=== PATIENT | female | born 1940 | race Caucasian/White ===

== ENCOUNTER → 2017-09-27 15:14 | Outpatient (CLI) | payer MEDICARE, OTHER, SELFPAY ==
--- NOTE | 2017-09-27 | DI.MG.S_ITS ---
BILATERAL DIGITAL SCREENING MAMMOGRAM 3D/2D WITH CAD: 09/27/2017 CLINICAL: Routine screening. Family history of breast cancer. Comparison is made to exams dated: 08/04/2016 mammogram, 07/22/2015 mammogram, and 07/16/2014 mammogram - [facility]. The tissue of both breasts is heterogeneously dense. This may lower the sensitivity of mammography. Current study was also evaluated with a Computer Aided Detection (CAD) system. There are multiple calcifications in the left breast superior medial quadrant posterior depth. No other significant masses, calcifications, or other findings are seen in either breast. IMPRESSION: INCOMPLETE: NEEDS ADDITIONAL IMAGING EVALUATION The multiple calcifications in the left breast are indeterminate. Additional views with possible ultrasound are recommended. This exam was interpreted at Station ID: [id number]. NOTE: For mammograms, a report in lay terms will be sent to the patient. Approximately 15% of breast malignancies will not be visualized mammographically. In the management of a palpable breast mass, a negative mammogram must not discourage biopsy of a clinically suspicious lesion. Electronically Signed By: Luis Nagel M.D. ecl/:09/27/2017 20:02:43 copy to: BERNIE GUSMAN letter sent: Additional Imaging Needed ACR BI-RADS Category 0: Incomplete 3340F
== END ==
PROVIDERS: PCP Internal Medicine; Visit Provider Internal Medicine
DX: Z12.31 Encounter for screening mammogram for malignant neoplasm of breast (principal); Z80.3 Family history of malignant neoplasm of breast
CPT/HCPCS: 77063; 77067

== ENCOUNTER → 2017-10-25 13:36 | Outpatient (CLI) | payer MEDICARE, OTHER, SELFPAY ==
--- NOTE | 2017-10-25 | DI.MG.S_ITS ---
UNILATERAL LEFT DIGITAL DIAGNOSTIC MAMMOGRAM 3D/2D WITH ADDITIONAL VIEWS: 10/25/2017 CLINICAL: Additional evaluation requested from prior study. Comparison is made to exams dated: 09/27/2017 mammogram, 08/04/2016 mammogram, and 07/22/2015 mammogram - [facility]. The tissue of the left breast is heterogeneously dense. This may lower the sensitivity of mammography. There are 1.9 cm x 1.8 cm x 1.4 cm grouped fine punctate calcifications in the left breast upper inner aspect posterior depth. No other significant masses or calcifications are seen in the breast. IMPRESSION: INCOMPLETE: NEEDS ADDITIONAL IMAGING EVALUATION The 1.9 cm x 1.8 cm x 1.4 cm grouped fine punctate calcifications in the left breast are at an intermediate suspicion for malignancy. A targeted ultrasound is recommended to assess for a mass correlate. If no mass correlate is identified, a stereotactic biopsy is recommended. This exam was interpreted at Station ID: [id number]. NOTE: For mammograms, a report in lay terms will be sent to the patient. Approximately 15% of breast malignancies will not be visualized mammographically. In the management of a palpable breast mass, a negative mammogram must not discourage biopsy of a clinically suspicious lesion. Electronically Signed By: Luis Nagel M.D. ecl/:10/26/2017 04:30:27 copy to: BERNIE GUSMAN letter sent: Additional Imaging Needed ACR BI-RADS Category 0: Incomplete 3340F
--- NOTE | 2017-10-25 | DI.US.S_ITS ---
ULTRASOUND OF LEFT BREAST: 10/25/2017 CLINICAL: Follow up from addtional views. Comparison is made to exams dated: 10/25/2017 mammogram, 09/27/2017 mammogram, and 08/04/2016 mammogram - [facility]. Real-time and Doppler ultrasound of the left breast were performed. Rincon scale images of the real-time examination were reviewed. Targeted ultrasound was performed of the superior medial left breast. No underlying mass or abnormality is identified. There is no ultrasound correlate for the calcifications seen in the superior medial left breast on diagnostic mammography. IMPRESSION: SUSPICIOUS OF MALIGNANCY - FOLLOW-UP RECOMMENDED The 1.9 cm x 1.8 cm x 1.4 cm grouped fine punctate calcifications in the superior medial left breast on diagnostic mammography are at an intermediate suspicion for malignancy, and demonstrate no mass correlate on targeted ultrasound. As such, a stereotactic biopsy is recommended. These results and recommendations were discussed with the patient by telephone immediately after the time of the exam by radiologist Dr. Nagel. Patient's identity was confirmed with personal identifiers prior to telephone discussion of results. This exam was interpreted at Station ID: [id number]. Electronically Signed By: Luis Nagel M.D. ecl/:10/26/2017 04:33:14 copy to: BERNIE GUSMAN letter sent: Biopsy Required Ultrasound BI-RADS: 4b Suspicious abnormality - intermediate suspicion of malignancy
== END ==
PROVIDERS: PCP Internal Medicine; Visit Provider Internal Medicine
DX: R92.1 Mammographic calcification found on diagnostic imaging of breast (principal)
CPT/HCPCS: 76642; 77065; G0279

== ENCOUNTER → 2018-02-16 13:07 | Outpatient (REF) | payer MEDICARE, OTHER, SELFPAY ==
[2018-02-16 13:19] LABS: Add Manual Diff / Slide Review NO; Basophils Percent Auto 1.2 % (0-2); Eosinophils Percent Auto 2.5 % (2-4); Hematocrit 35.8 % (36-46); Lymphocytes Percent Auto 14.1 % (25-40); Mean Corpuscular HGB Conc 33.6 % (30-36); Mean Corpuscular Hemoglobin 28.9 PG (26-34); Mean Corpuscular Volume 86.1 fL (80-100); Monocytes Percent Auto 7.2 % (3-14); Neutrophils Absolute Auto 5500 /uL (1500-7000); Platelet Count 235 X10^3/uL (150-400); Red Blood Cell Count 4.16 X10^6/uL (4.0-5.2); Red Cell Distribution Width 14.1 % (11.6-14.8); White Blood Cell Count 7.3 X10^3/uL (4.5-11.0)
[2018-02-16 13:23] LABS: BUN Creatinine Ratio 37.1 (6-22); Blood Urea Nitrogen 26 mg/dL (7-17); Calcium 9.5 mg/dL (8.4-10.2); Carbon Dioxide 29 mmol/L (22-32); Chloride 104 mmol/L (98-107); Estimated Glomerular Filt Rate > 60.0 mL/min (>60); Glucose 88 mg/dL (80-110); HEMOLYSIS < 15 (0-50); Potassium 5.1 mmol/L (3.4-5.1); Sodium 141 mmol/L (137-145)
== END ==
LOC: LAB 13:07
PROVIDERS: PCP Internal Medicine; Visit Provider Internal Medicine
DX: R10.30 Lower abdominal pain, unspecified (principal)
CPT/HCPCS: 80048; 85025

== ENCOUNTER → 2018-02-20 08:54 | Outpatient (CLI) | payer MEDICARE, OTHER, SELFPAY ==
--- NOTE | 2018-02-20 | DI.CT.S_ITS ---
PROCEDURE: CT ABDOMEN PELVIS W CON INDICATIONS: LOWER ABDOMINAL PAIN TECHNIQUE: After the administration of oral and intravenous contrast, 5 mm thick sections acquired from the diaphragms to the symphysis. 5 mm thick coronal and sagittal reformats were performed. For radiation dose reduction, the following was used: automated exposure control, adjustment of mA and/or kV according to patient size. COMPARISON: [facility], CT, ABDOMEN/PELVIS WITH CONTRAST, 07/26/2016, 9:27. [facility], CT, ABDOMEN/PELVIS WITH CONTRAST, 09/08/2014, 9:19. FINDINGS: Image quality: Excellent. ABDOMEN: Lung bases: Lung bases are clear. Heart size is normal. Solid organs: Liver is normal in size and enhancement. Gallbladder appears normal. Biliary system is non-dilated. Pancreas enhances normally. Spleen is normal in size and enhancement. No adrenal nodules. Kidneys are normal in size and enhancement, without hydronephrosis. Peritoneum and bowel: Stomach, small bowel, and colon loops are normal in caliber and wall thickness. No free fluid or air. Nodes and vessels: No retroperitoneal or mesenteric adenopathy. Aorta and inferior vena cava are normal in caliber. Miscellaneous: No ventral hernias. PELVIS: Genitourinary: Bladder wall thickness is normal. Miscellaneous: No inguinal hernias or adenopathy. Mild diverticulosis, no acute diverticulitis, normal appendix. Bones: No suspicious bony lesions. Coarsened trabecula again noted at the left sacrum and left iliac bone, present at least since 2011 and most consistent with mild Paget's disease. No vertebral body compression fractures. IMPRESSION: 1. Mild diverticulosis, no acute diverticulitis, normal appendix. No inflammation within the pelvis is seen. A definite source of the reported lower abdominal pain is not found. 2. Again noted is a pattern of mild trabecular thickening at the left sacrum and iliac bone consistent with long-standing Paget's disease, present at least since [address] scanning. No acute osseous abnormality is found. Dictated by: Yuniel Lu M.D. on 02/20/2018 at 10:29 Approved by: Yuniel Lu M.D. on 02/20/2018 at 10:35
== END ==
PROVIDERS: PCP Internal Medicine; Visit Provider Internal Medicine
DX: R10.30 Lower abdominal pain, unspecified (principal); K57.90 Diverticulosis of intestine, part unspecified, without perforation or abscess without bleeding; M88.89 Osteitis deformans of multiple sites
CPT/HCPCS: 74177; Q9967

== ENCOUNTER 2018-03-27 09:44 | Day surgery (SDC) | payer MEDICARE, OTHER, SELFPAY ==
[2018-03-27 11:17] VITALS: BP 123/59; PULSE 65; RESP 15; TEMP 36.2; O2SAT 100
[2018-03-27] MEDS: PROPARACAINE 0.5% OPHTH SOL 2 DROPS EYE-OP (11:20)
[2018-03-27] MEDS: CATARACT EYE COMPOUND (10 DROPS/SYRINGE) 3 DROPS EYE-OP (11:36)
--- NOTE | 2018-03-27 12:22 | PM.PREOP ---
Pre-operative Note Interval Note History & Physical reviewed/Exam performed by Physician: No Changes to H&P: No
--- NOTE | 2018-03-27 12:22 | PM.OP.1 ---
Operative Date/Time/Diagnoses Pre-op diagnosis: Nuclear cataract right eye Procedure & Clinicians Procedure: Cataract Surgery Same procedure as scheduled: Yes Surgeon: Chuckie Ng Anesthesia Type: MAC +/- and Sedation Operative Notes Procedure in detail: Patient brought to the operating suite. Tetracaine drops placed in the right eye. The marking instrument was used to tiffany the vertical and horizontal meridians. Patient was prepped and draped in sterile manner. Wire lid speculum was placed in the eye. The marking instrument was used to tiffany the 10 degree meridian. Betadine drops were placed on the eye. This was irrigated. Lidocaine jelly was placed on the eye. A paracentesis port was created with a side-port blade. 0.1 mL 1% preservative free lidocaine was injected into the anterior chamber. The anterior chamber was deepened with viscoelastic. 2.6 mm keratome was used to create a temporal clear corneal incision. Cystotome and Utrata forceps were used to create continuous tear capsulorrhexis. Balanced salt solution was used to hydro dissect the nucleus. The phacoemulsification handpiece was inserted and the nucleus was removed using the stop and chop technique. The irrigation aspiration handpiece was inserted and the remaining cortex was removed. Anterior chamber was deepened with viscoelastic. An Lima [id number] intraocular lens with a power of 23.0 was injected into the capsular bag. Irrigation aspiration handpiece was inserted and the remaining viscoelastic was removed. The lens was rotated to the 10 degree meridian. Incision was hydrated with balanced salt solution and found to be leak free with pressure with Weck-Merced sponges. 0.1 mL Vigamox injected anterior chamber. 0.3 mL Kenalog 10 mg was injected subconjunctivally. Lid speculum was removed. The patient left the operating room in excellent condition. Complications: none Condition: stable Disposition: same day surgery
[2018-03-27] MEDS: PHENYLEPHRINE/LIDOCAINE VIAL (OR) 0.2 ML EYE-OP (12:34)
[2018-03-27] MEDS: MOXIFLOXACIN OPHTH DROPS 3 ML BOTTLE 2 DROPS INJ (12:35)
[2018-03-27] MEDS: TETRACAINE 0.5% OPHTH DROPS 4 ML 2 DROPS EYE-OP (12:36)
[2018-03-27] MEDS: CHONDROIDTIN/SOD HYALURONATE 1.05 ML SYRINGE INTRAOCULA (12:36)
[2018-03-27] MEDS: TRIAMCINOLONE 50 MG/5 ML VIAL INJ (12:36)
[2018-03-27] MEDS: LIDOCAINE JELLY 2% 5 ML 1 APPLIC TOP (12:36)
[2018-03-27] MEDS: BALANCED SALT IRRIG SOLN NO.2 500 ML, EPINEPHrine 1 MG IRR (12:37)
[2018-03-27 12:54] VITALS: BP 137/64; PULSE 60; RESP 16; TEMP 36.3; O2SAT 100
== END 2018-03-27 13:06 | disposition home or self-care (01) ==
PROVIDERS: PCP Internal Medicine; Visit Provider Ophthalmology
DX: H25.11 Age-related nuclear cataract, right eye (principal); I10 Essential (primary) hypertension
CPT/HCPCS: J0171; J2250; J3301; V2788

== ENCOUNTER 2018-04-10 09:05 | Day surgery (SDC) | payer MEDICARE, OTHER, SELFPAY ==
[2018-04-10] MEDS: PROPARACAINE 0.5% OPHTH SOL 2 DROPS EYE-OP (10:09)
[2018-04-10] MEDS: CATARACT EYE COMPOUND (10 DROPS/SYRINGE) 3 DROPS EYE-OP ×3 (10:13→10:32)
[2018-04-10 10:23] VITALS: BP 133/68; PULSE 66; RESP 16; TEMP 37.1; O2SAT 100; BMI 24.5
[2018-04-10] MEDS: MOXIFLOXACIN OPHTH DROPS 3 ML BOTTLE 2 DROPS INJ (11:35)
[2018-04-10] MEDS: PHENYLEPHRINE/LIDOCAINE VIAL (OR) 0.2 ML EYE-OP (11:35)
[2018-04-10] MEDS: CHONDROIDTIN/SOD HYALURONATE 1.05 ML SYRINGE INTRAOCULA (11:36)
[2018-04-10] MEDS: TRIAMCINOLONE 50 MG/5 ML VIAL INJ (11:36)
[2018-04-10] MEDS: TETRACAINE 0.5% OPHTH DROPS 4 ML 2 DROPS EYE-OP (11:36)
[2018-04-10] MEDS: LIDOCAINE JELLY 2% 5 ML 1 APPLIC TOP (11:36)
[2018-04-10] MEDS: BALANCED SALT IRRIG SOLN NO.2 500 ML, EPINEPHrine 1 MG IRR (11:37)
[2018-04-10 11:47] VITALS: BP 130/66; PULSE 58; RESP 16; TEMP 36.3; O2SAT 99
--- NOTE | 2018-04-10 11:49 | PM.PREOP ---
Pre-operative Note Interval Note History & Physical reviewed/Exam performed by Physician: No Changes to H&P: No
--- NOTE | 2018-04-10 11:49 | PM.OP.1 ---
Operative Date/Time/Diagnoses Pre-op diagnosis: Nuclear Cataract Left eye Post-op diagnosis: same Procedure & Clinicians Surgeon: Chuckie Ng Anesthesia Type: MAC +/- and Sedation Operative Notes Procedure in detail: Patient brought to the operating suite. Tetracaine drops placed in the left eye. Patient was prepped and draped in sterile manner. Wire lid speculum was placed in the eye. Betadine drops were placed on the eye. This was irrigated. Lidocaine jelly was placed on the eye. A paracentesis port was created with a side-port blade. 0.1 mL 1% preservative free lidocaine was injected into the anterior chamber. The anterior chamber was deepened with viscoelastic. 2.6 mm keratome was used to create a temporal clear corneal incision. Cystotome and Utrata forceps were used to create continuous tear capsulorrhexis. Balanced salt solution was used to hydro dissect the nucleus. The phacoemulsification handpiece was inserted and the nucleus was removed using the stop and chop technique. The irrigation aspiration handpiece was inserted and the remaining cortex was removed. Anterior chamber was deepened with viscoelastic. An Lima [id number] intraocular lens with a power of 23.0 was injected into the capsular bag. Irrigation aspiration handpiece was inserted and the remaining viscoelastic was removed. Incision was hydrated with balanced salt solution and found to be leak free with pressure with Weck-Merced sponges. 0.1 mL Vigamox injected anterior chamber. 0.3 mL Kenalog 10 mg was injected subconjunctivally. Lid speculum was removed. The patient left the operating room in excellent condition. Complications: none Condition: stable Disposition: same day surgery
--- NOTE | 2018-04-10 12:27 | SUR.PREOP ---
1013 late entry - Confirmed eye drops/allergy to tropicamide with pharmacy prior to administration. Patient stated that she had it with her first cataract surgery and felt like it was normal post-operative trauma to the eye. Also states that she had mentioned the itching to Dr. Ng at the last surgery (on the way into the OR and she wasn't having symptoms) and that he told her that she needed to have the medication anyway. 1045 late entry - Patient had no complaints of eye irritation after the drops.
== END 2018-04-10 12:02 | disposition home or self-care (01) ==
LOC: OR 09:07
PROVIDERS: PCP Internal Medicine; Visit Provider Ophthalmology
DX: H25.12 Age-related nuclear cataract, left eye (principal); I10 Essential (primary) hypertension
CPT/HCPCS: J0171; J2250; J3301; V2788

== ENCOUNTER 2018-04-25 07:52 | Outpatient (RCR) | payer MEDICARE, OTHER, SELFPAY ==
--- NOTE | 2018-04-25 14:44 | PT.OIE ---
Current Diagnoses Urge incontinence (04/25/18) Past Surgical History Status post tubal ligation Provider Visit Care Team Role Provider Type Gaby Sarabia MD Attending Provider Physician Primary Care Provider Specialty: Internal Medicine Address: [address] [place] [address], [facility] Email: Physical Therapy Initial Evaluation PT-OP-A Visit Information Start: 04/25/18 09:30 Freq: Status: Active Protocol: Document 04/25/18 08:15 AMB (Rec: 04/25/18 10:15 AMB [id number]) Out-Patient Physical Therapy Visit Information Visit Information Visit Type Initial Evaluation Visit Start Time 08:15 Visit Stop Time 09:15 Total Visit Minutes 55 Visit Number 1 Evaluation Information Evaluation Date 04/25/18 PT-OP-B Current Condition Start: 04/25/18 09:30 Freq: Status: Active Protocol: Document 04/25/18 08:15 AMB (Rec: 04/25/18 10:24 AMB [id number]) Current Condition History of Current Condition Onset Date 2 years Current Complaints urgency, urge incontinence History of Current Condition Pt is a post menopausal woman who has been noticing increased urge incontinence for the past few years. She is concerned about her pelvic floor strength. She denies pelvic heaviness, but does have some frequency (going to the bathroom about once an hour when she drinks a lot of water, but when she fluid restricts she can go 5 hours without voiding). She does wear a pad, because some days she may not have any leaking, and some days she may leak on her way to the bathroom. She does admit to having the quick in the door trigger. Prior Functional Status Baseline Function- ADL's Independent Baseline Function- Mobility Independent Current Functional Impairments (Reported) Functional Limitations- ADL's Wears a pad due to urinary incontinence Personal Factors Other Personal Factors That May Effect Lives on [place] Therapy/Recovery PT-OP-C Subjective Start: 04/25/18 09:30 Freq: Status: Active Protocol: Document 04/25/18 08:15 AMB (Rec: 04/25/18 11:41 AMB [email or web address]) Patient Questionnaires Pelvic Pain and Urgency/Frequency Patient Symptom Scale Pelvic Pain Score 7 PT-OP-I Pelvic Floor Start: 04/25/18 09:30 Freq: Status: Active Protocol: Document 04/25/18 08:15 AMB (Rec: 04/25/18 11:47 AMB [email or web address]) Pelvic Floor Assessment Urine Pelvic Floor Surgery No Urinary Symptoms Urge Sensation Leakage Size Medium Leakage Cause Urge Other Leakage Causes quick in door Leaks Per Day 1 Voiding Frequency every hour Nocturia 2 Urine Pad Type Panty Liner Pelvic Clock Pelvic Clock 12-3 Atrophy Pelvic Clock 9-12 Atrophy Perineal Descent Resting Absent Bearing Absent Contraction Ability Voluntary Contraction Weak Voluntary Relaxation Weak Manual Muscle Testing Left 2 Manual Muscle Testing Right 2 Manual Muscle Testing Anterior 1 Manual Muscle Testing Posterior 3 Comments Pelvic Floor Comments Charito has good strength posteriorly and with superficial muscles, but lacks strength at levator ani and with anterior superficial muscles. PT-OP-Q Treatments Start: 04/25/18 09:30 Freq: Status: Active Protocol: Document 04/25/18 08:15 AMB (Rec: 04/25/18 11:47 AMB [email or web address]) Therapeutic Exercises Supine Exercises 1 Supine Exercise Name quick flicks and long holds 10 second Reps/Minutes 2x10 Comments vc for correct muscle utilization, avoiding abs PT-OP-T Assessment and Plan Start: 04/25/18 09:30 Freq: Status: Active Protocol: Document 04/25/18 08:15 AMB (Rec: 04/25/18 12:05 AMB [email or web address]) Physical Therapy Assessment Rehab Potential Rehabilitation Potential Good Evaluation Complexity Number of Personal Factors/Comorbidities 1-2 Number of Body Systems Impaired 1-2 Clinical Presentation at Evaluation Stable Goals Two Impairment pelvic floor strength Short Term Goal (STG) Charito will be independent with a pelvic floor HEP STG Duration 4 weeks Usp Goal (LTG) Charito will exhibit 3/5 pelvic floor strength. LTG Duration 8 weeks One Impairment continence Short Term Goal (STG) Charito will use urge control methods to reduce urgency to 1x/week. STG Duration 4 weeks Assessment Summary Assessment Charito attends with urge incontinence symptoms, but since she lives on [place], she was hoping to make this her only appointment. She has been looking at NMES units online and is hoping that help with her incontinence. She does have some weakness, but was also educated in urge suppression. Would recommend her to be seen for at least one more visit for her to be reassessed to make sure she is making appropriate improvements. Physical Therapy Plan Frequency and Duration Frequency of Treatment Every Other Week Duration of Treatment 8 weeks Plan of Care Start Date 04/25/18 Plan of Care End Date 06/20/18 Therapeutic Interventions Therapeutic Interventions Home Exercise Program Manual Therapy Neuromuscular Re-education Self-Care/Home Management Therapeutic Activities Therapeutic Exercises Modalities Biofeedback Electric Stimulation Next Visit Focus/Plan Next Note Type Treatment Note Next Visit Plan Progress urge suppression and pelvic floor strength
--- NOTE | 2018-04-25 14:45 | PT.OPPOC ---
Current Diagnoses Urge incontinence (04/25/18) Provider Visit Care Team Role Provider Type Gaby Sarabia MD Attending Provider Physician Primary Care Provider Specialty: Internal Medicine Address: [address] [place] [address], [id number] Email: Plan Of Care PT-OP-T Assessment and Plan Start: 04/25/18 09:30 Freq: Status: Active Protocol: Document 04/25/18 08:15 AMB (Rec: 04/25/18 12:05 AMB [email or web address]) Physical Therapy Assessment Rehab Potential Rehabilitation Potential Good Evaluation Complexity Number of Personal Factors/Comorbidities 1-2 Number of Body Systems Impaired 1-2 Clinical Presentation at Evaluation Stable Goals Two Impairment pelvic floor strength Short Term Goal (STG) Charito will be independent with a pelvic floor HEP STG Duration 4 weeks Induction Furnace Operator Goal (LTG) Charito will exhibit 3/5 pelvic floor strength. LTG Duration 8 weeks One Impairment continence Short Term Goal (STG) Charito will use urge control methods to reduce urgency to 1x/week. STG Duration 4 weeks Assessment Summary Assessment Charito attends with urge incontinence symptoms, but since she lives on [place], she was hoping to make this her only appointment. She has been looking at NMES units online and is hoping that help with her incontinence. She does have some weakness, but was also educated in urge suppression. Would recommend her to be seen for at least one more visit for her to be reassessed to make sure she is making appropriate improvements. Physical Therapy Plan Frequency and Duration Frequency of Treatment Every Other Week Duration of Treatment 8 weeks Plan of Care Start Date 04/25/18 Plan of Care End Date 06/20/18 Therapeutic Interventions Therapeutic Interventions Home Exercise Program Manual Therapy Neuromuscular Re-education Self-Care/Home Management Therapeutic Activities Therapeutic Exercises Modalities Biofeedback Electric Stimulation Next Visit Focus/Plan Next Note Type Treatment Note Next Visit Plan Progress urge suppression and pelvic floor strength Plan of Care Dates Plan of Care Start Date 04/25/18 Plan of Care End Date 06/20/18 Please Sign and Return: I have reviewed this Plan of Care and certify that the skilled therapy services above are required to meet the patient?s needs. Physician Signature Date Printed Name and Credentials Clinical Instructor Signature Printed Name and Credentials
--- NOTE | 2018-06-11 11:34 | PT.OPDS ---
Current Diagnoses Urge incontinence (04/25/18) Provider Visit Care Team Role Provider Type Gaby Sarabia MD Attending Provider Physician Primary Care Provider Specialty: Internal Medicine Address: [address] [place] [address], [facility] Email: Visit Number Visit Number 1 Discharge Summary PT-OP-B Current Condition Start: 04/25/18 09:30 Freq: Status: Active Protocol: Document 04/25/18 08:15 AMB (Rec: 04/25/18 10:24 AMB [id number]) Current Condition History of Current Condition Onset Date 2 years Current Complaints urgency, urge incontinence History of Current Condition Pt is a post menopausal woman who has been noticing increased urge incontinence for the past few years. She is concerned about her pelvic floor strenght. She denies pelvic heaviness, but does have some frequency (going to the bathroom about once an hour when she drinks a lot of water, but when she fluid restricts she can go 5 hours without voiding). She does wear a pad, because some days she may not have any leaking, and some days she may leak on her way to the bathroom. She does admit to having the quick in the door trigger. Prior Functional Status Baseline Function- ADL's Independent Baseline Function- Mobility Independent Current Functional Impairments (Reported) Functional Limitations- ADL's Wears a pad due to urinary incontinence Personal Factors Other Personal Factors That May Effect Lives on [place] Therapy/Recovery PT-OP-C Subjective Start: 04/25/18 09:30 Freq: Status: Active Protocol: Document 04/25/18 08:15 AMB (Rec: 04/25/18 11:41 AMB [email or web address]) Patient Questionnaires Pelvic Pain and Urgency/Frequency Patient Symptom Scale Pelvic Pain Score 7 PT-OP-I Pelvic Floor Start: 04/25/18 09:30 Freq: Status: Active Protocol: Document 04/25/18 08:15 AMB (Rec: 04/25/18 11:47 AMB [email or web address]) Pelvic Floor Assessment Urine Pelvic Floor Surgery No Urinary Symptoms Urge Sensation Leakage Size Medium Leakage Cause Urge Other Leakage Causes quick in door Leaks Per Day 1 Voiding Frequency every hour Nocturia 2 Urine Pad Type Panty Liner Pelvic Clock Pelvic Clock 12-3 Atrophy Pelvic Clock 9-12 Atrophy Perineal Descent Resting Absent Bearing Absent Contraction Ability Voluntary Contraction Weak Voluntary Relaxation Weak Manual Muscle Testing Left 2 Manual Muscle Testing Right 2 Manual Muscle Testing Anterior 1 Manual Muscle Testing Posterior 3 Comments Pelvic Floor Comments Charito has good strength posteriorly and with superficial muscles, but lacks strength at levator ani and with anterior superficial muscles. PT-OP-T Assessment and Plan Start: 04/25/18 09:30 Freq: Status: Active Protocol: Document 06/11/18 11:33 AMB (Rec: 06/11/18 11:34 AMB [email or web address]) Physical Therapy Plan Discharge Physical Therapy Discharge Reasons No Longer Attending PT Discharge Comments Charito was encouraged to make at least 1 follow up appointment after evaluation, she then canceled that appointment since she lives on [place], she did not want to make the trip in. See initial evaluation for information, as patient has not been seen since.
== END 2018-06-13 16:42 ==
LOC: PHYS 07:52
PROVIDERS: PCP Internal Medicine; Visit Provider Internal Medicine
DX: N39.41 Urge incontinence (principal)
CPT/HCPCS: 97110; 97161

== ENCOUNTER → 2018-11-21 09:36 | Outpatient (CLI) | payer MEDICARE, OTHER, SELFPAY ==
--- NOTE | 2018-11-21 | DI.MG.S_ITS ---
BILATERAL DIGITAL SCREENING MAMMOGRAM 3D/2D WITH CAD: 11/21/2018 CLINICAL: Routine screening. Family history of breast cancer. Comparison is made to exams dated: 09/27/2017 mammogram, 08/04/2016 mammogram, 07/22/2015 mammogram - [facility], 11/15/2017 stereotactic biopsy - [facility], and 10/25/2017 mammogram - [facility]. The tissue of both breasts is heterogeneously dense. This may lower the sensitivity of mammography. Current study was also evaluated with a Computer Aided Detection (CAD) system. There is an asymmetry in the left breast middle depth lateral region seen on the craniocaudal view only. There is possible architectural distortion associated with the asymmetry, best seen on LCCBTO tomosynthesis slice 25/64. There are punctate calcifications associated with the asymmetry. There is a biopsy clip in the superior medial left breast posterior depth. No other significant masses, calcifications, or other findings are seen in either breast. IMPRESSION: INCOMPLETE: NEEDS ADDITIONAL IMAGING EVALUATION The asymmetry with possible associated architectual distortion in the left breast is indeterminate. Additional views with possible ultrasound are recommended. This exam was interpreted at Station ID: [id number]. NOTE: For mammograms, a report in lay terms will be sent to the patient. Approximately 15% of breast malignancies will not be visualized mammographically. In the management of a palpable breast mass, a negative mammogram must not discourage biopsy of a clinically suspicious lesion. Electronically Signed By: Luis Nagel M.D. ecl/:11/21/2018 17:33:28 letter sent: Additional Imaging Needed ACR BI-RADS Category 0: Incomplete 3340F
== END ==
PROVIDERS: PCP Internal Medicine; Visit Provider Internal Medicine
DX: Z12.31 Encounter for screening mammogram for malignant neoplasm of breast (principal); Z80.3 Family history of malignant neoplasm of breast
CPT/HCPCS: 77063; 77067

== ENCOUNTER → 2018-12-12 09:33 | Outpatient (CLI) | payer MEDICARE, OTHER, SELFPAY ==
--- NOTE | 2018-12-12 | DI.US.S_ITS ---
PROCEDURE: US BREAST LT LIMITED COMPARISON: [facility], BREAST LT LIMITED, 10/25/2017, 14:18. INDICATIONS: ADDITIONAL VIEW FINDINGS: IMPRESSION: Dictated by: Harvey Arthur M.D. on 12/14/2018 at 6:53 Approved by: Harvey Arthur M.D. on 12/14/2018 at 6:56
--- NOTE | 2018-12-12 | DI.MG.S_ITS ---
UNILATERAL LEFT DIGITAL DIAGNOSTIC MAMMOGRAM 3D/2D WITH ADDITIONAL VIEWS: 12/12/2018 CLINICAL: Additional evaluation requested from prior study. Comparison is made to exams dated: 11/21/2018 mammogram, 10/25/2017 mammogram, 09/27/2017 mammogram, and 08/04/2016 mammogram - [facility]. The tissue of left breast is heterogeneously dense. This may lower the sensitivity of mammography. The previously described asymmetry in the left breast middle depth lateral region seen on the craniocaudal view only with possible architectural distortion appears less prominent and decreased in size on today's imaging. The described calcifications appear relatively stable compared to prior mammograms. No other significant masses or calcifications are seen in the breast. IMPRESSION: INCOMPLETE: NEEDS ADDITIONAL IMAGING EVALUATION The asymmetry in the left breast is indeterminate. An ultrasound is recommended for further evaluation and is scheduled to immediately follow this study. This exam was interpreted at Station ID: [id number]. NOTE: For mammograms, a report in lay terms will be sent to the patient. Approximately 15% of breast malignancies will not be visualized mammographically. In the management of a palpable breast mass, a negative mammogram must not discourage biopsy of a clinically suspicious lesion. Electronically Signed By: Harvey Arthur M.D. aty/:12/12/2018 10:39:30 ACR BI-RADS Category 0: Incomplete 3340F
[2018-12-12 12:51] LABS: BUN Creatinine Ratio 37.1 (6-22); Blood Urea Nitrogen 26 mg/dL (7-17); Calcium 9.8 mg/dL (8.4-10.2); Carbon Dioxide 29 mmol/L (22-32); Chloride 103 mmol/L (98-107); Cholesterol 227 mg/dL (140-199); Estimated Glomerular Filt Rate > 60.0 mL/min (>60); Glucose 93 mg/dL (80-110); HDL Cholesterol 69 mg/dL (40-60); HEMOLYSIS < 15 (0-50); LDL Cholesterol Calculated 148 mg/dL (<100); Potassium 4.7 mmol/L (3.4-5.1); Sodium 140 mmol/L (137-145); Triglycerides 52 mg/dL (35-150)
== END ==
PROVIDERS: PCP Internal Medicine; Visit Provider Internal Medicine
DX: R92.8 Other abnormal and inconclusive findings on diagnostic imaging of breast (principal); N64.89 Other specified disorders of breast; I10 Essential (primary) hypertension; E78.5 Hyperlipidemia, unspecified
CPT/HCPCS: 36415; 76642; 77065; 80048; 80061; G0279

== ENCOUNTER → 2019-06-26 13:05 | Outpatient (CLI) | payer MEDICARE, OTHER, SELFPAY ==
--- NOTE | 2019-06-26 | DI.MG.S_ITS ---
UNILATERAL LEFT DIGITAL DIAGNOSTIC MAMMOGRAM 3D/2D SHORT-TERM FOLLOW-UP: 06/26/2019 CLINICAL: Patient returns for a 6 month follow up of the left breast. Comparison is made to exams dated: 12/12/2018 mammogram, 11/21/2018 [facility], 11/15/2017 stereotactic biopsy [facility], 10/25/2017, 08/04/2016, and 07/22/2015 [facility]. The tissue of left breast is heterogeneously dense. This may lower the sensitivity of mammography. The irregular equal density asymmetry with indistinct margins in the left breast middle depth lateral region seen on the craniocaudal view only is less prominent compared to the prior studies from 2019 and stable in appearance compared to older exams. No other significant masses or calcifications are seen in the breast. IMPRESSION: There is no mammographic evidence of malignancy. Return to annual mammogram screening schedule is recommended. This exam was interpreted at Station ID: [id number]. NOTE: For mammograms, a report in lay terms will be sent to the patient. Approximately 15% of breast malignancies will not be visualized mammographically. In the management of a palpable breast mass, a negative mammogram must not discourage biopsy of a clinically suspicious lesion. Electronically Signed By: Graham Orozco M.D. ddtran/:06/26/2019 14:05:10 letter sent: Normal Exam ACR BI-RADS Category 2: Benign Finding(s) 3342F
== END ==
PROVIDERS: PCP Internal Medicine; Referring Provider Internal Medicine; Visit Provider Internal Medicine
DX: R92.8 Other abnormal and inconclusive findings on diagnostic imaging of breast (principal); N64.89 Other specified disorders of breast
CPT/HCPCS: 77065; G0279

== ENCOUNTER → 2019-08-26 13:39 | Outpatient (CLI) | payer MEDICARE, OTHER, SELFPAY ==
[2019-08-26 13:49] LABS: Bacteria Urine None Seen; WBC Urine None Seen (0-5/HPF)
[2019-08-26 15:09] LABS: Appearance Urine UA CLEAR; Bilirubin Urine UA NEGATIVE (NEGATIVE); Color Urine UA YELLOW; Glucose Urine UA NEGATIVE (Negative); Ketones Urine UA TRACE (NEGATIVE); Leukocyte Esterase Urine UA NEGATIVE (NEGATIVE); Nitrite Urine UA NEGATIVE (Negative); Occult Blood Urine UA 1+ (Negative); Protein Urine UA NEGATIVE (Negative); Specific Gravity Urine UA >=1.030 (1.000-1.035); Urobilinogen Urine UA 0.2 E.U./dL (0.2)
[2019-08-26 15:15] LABS: Culture Indicated Urine Cult Not Indicated; RBC Urine 1-5/HPF (0-5/HPF)
== END ==
PROVIDERS: PCP Internal Medicine; Referring Provider Urology; Visit Provider Urology
DX: N39.41 Urge incontinence (principal)
CPT/HCPCS: 81001

== ENCOUNTER → 2019-10-09 08:28 | Outpatient (CLI) | payer MEDICARE, OTHER, SELFPAY ==
[2019-10-09 08:48] LABS: RBC Urine None Seen (0-5/HPF)
[2019-10-09 11:32] LABS: Appearance Urine UA CLEAR; Bilirubin Urine UA NEGATIVE (NEGATIVE); Color Urine UA YELLOW; Glucose Urine UA NEGATIVE (Negative); Ketones Urine UA NEGATIVE (NEGATIVE); Leukocyte Esterase Urine UA NEGATIVE (NEGATIVE); Nitrite Urine UA NEGATIVE (Negative); Occult Blood Urine UA NEGATIVE (Negative); Protein Urine UA NEGATIVE (Negative); Specific Gravity Urine UA 1.015 (1.000-1.035); Urobilinogen Urine UA 0.2 E.U./dL (0.2)
[2019-10-09 11:39] LABS: pH Urine UA 6.5 (4.5-8.0)
[2019-10-09 12:06] LABS: Bacteria Urine Occasional (0-1); Urine Comments Microscopic Normal; WBC Urine 0-1/HPF (0-5/HPF)
[2019-10-09 12:07] LABS: Culture Indicated Urine Cult Not Indicated
== END ==
PROVIDERS: PCP Internal Medicine; Referring Provider Urology; Visit Provider Urology
DX: R39.9 Unspecified symptoms and signs involving the genitourinary system (principal)
CPT/HCPCS: 81001

== ENCOUNTER → 2019-11-27 07:55 | Outpatient (CLI) | payer MEDICARE, OTHER, SELFPAY ==
--- NOTE | 2019-11-27 | DI.MG.S_ITS ---
BILATERAL DIGITAL SCREENING MAMMOGRAM 3D/2D WITH CAD: 11/27/2019 CLINICAL: Routine screening. Family history of breast cancer. Comparison is made to exams dated: 11/21/2018 mammogram, 09/27/2017 mammogram, and 08/04/2016 mammogram - [facility]. The tissue of both breasts is heterogeneously dense. This may lower the sensitivity of mammography. Current study was also evaluated with a Computer Aided Detection (CAD) system. There are benign calcifications in both breasts. No significant masses, calcifications, or other findings are seen in either breast. There has been no significant interval change. IMPRESSION: BENIGN There is no mammographic evidence of malignancy. A 1 year screening mammogram is recommended. This exam was interpreted at Station ID: [id number]. NOTE: For mammograms, a report in lay terms will be sent to the patient. Approximately 15% of breast malignancies will not be visualized mammographically. In the management of a palpable breast mass, a negative mammogram must not discourage biopsy of a clinically suspicious lesion. Electronically Signed By: Graham singh/dina:11/27/2019 08:31:28 letter sent: Normal Exam ACR BI-RADS Category 2: Benign Finding(s) 3342F
== END ==
PROVIDERS: PCP Internal Medicine; Referring Provider Internal Medicine; Visit Provider Internal Medicine
DX: Z12.31 Encounter for screening mammogram for malignant neoplasm of breast (principal); Z80.3 Family history of malignant neoplasm of breast
CPT/HCPCS: 77063; 77067

== ENCOUNTER → 2020-12-07 16:32 | Outpatient (CLI) | payer MEDICARE, OTHER, SELFPAY | PROVIDERS: PCP Internal Medicine; Referring Provider Internal Medicine; Visit Provider Internal Medicine | DX: Z12.31 Encounter for screening mammogram for malignant neoplasm of breast (principal); Z53.8 Procedure and treatment not carried out for other reasons ==

== ENCOUNTER → 2021-01-11 08:21 | Outpatient (CLI) | payer MEDICARE, OTHER, SELFPAY ==
[2021-01-11 11:04] LABS: Alanine Aminotransferase 14 IU/L (<35); Albumin 4.6 g/dL (3.5-5.0); Albumin Globulin Ratio 1.8 (1.0-2.8); Alkaline Phosphatase 133 U/L (38-126); Aspartate Aminotransferase 25 IU/L (14-36); BUN Creatinine Ratio 25.8 (6-22); Bilirubin Total 0.4 mg/dL (0.2-1.3); Blood Urea Nitrogen 23 mg/dL (7-17); Carbon Dioxide 29 mmol/L (22-32); Chloride 99 mmol/L (98-107); Cholesterol 172 mg/dL (140-199); Estimated Glomerular Filt Rate > 60.0 mL/min (>60); Globulin 2.6 g/dL (1.7-4.1); Glucose 94 mg/dL (80-110); HDL Cholesterol 81 mg/dL (40-60); HEMOLYSIS < 15 (0-50); LDL Cholesterol Calculated 81 mg/dL (<100); Potassium 4.6 mmol/L (3.4-5.1); Sodium 136 mmol/L (137-145); Total Protein 7.2 g/dL (6.3-8.2); Triglycerides 51 mg/dL (35-150)
[2021-01-11 11:20] LABS: Vitamin D 25 Hydroxy (D3) 62.6 ng/mL (30.0-100.0)
--- NOTE | 2021-01-11 15:11 | DI.MG.S_ITS ---
BILATERAL DIGITAL SCREENING MAMMOGRAM 3D/2D WITH CAD: 01/11/2021 CLINICAL: Routine screening. Family history of breast cancer. Comparison is made to exams dated: 11/27/2019 mammogram, 06/26/2019 mammogram, and 11/21/2018 mammogram - [facility]. The tissue of both breasts is heterogeneously dense. This may lower the sensitivity of mammography. Current study was also evaluated with a Computer Aided Detection (CAD) system. There are benign calcifications in both breasts. No significant masses, calcifications, or other findings are seen in either breast. There has been no significant interval change. IMPRESSION: BENIGN There is no mammographic evidence of malignancy. A 1 year screening mammogram is recommended. This exam was interpreted at Station ID: [id number]. NOTE: For mammograms, a report in lay terms will be sent to the patient. Approximately 15% of breast malignancies will not be visualized mammographically. In the management of a palpable breast mass, a negative mammogram must not discourage biopsy of a clinically suspicious lesion. Electronically Signed By: Víctor Luke M.D., jr/dina:01/11/2021 15:42:46 letter sent: Normal Exam ACR BI-RADS Category 2: Benign Finding(s) 3342F
[2021-01-11 18:17] LABS: Hep C Virus Ab w/Reflex Quant NEGATIVE s/c (NEGATIVE)
== END ==
PROVIDERS: PCP Internal Medicine; Referring Provider Internal Medicine; Visit Provider Internal Medicine
DX: Z80.3 Family history of malignant neoplasm of breast (principal); Z12.31 Encounter for screening mammogram for malignant neoplasm of breast; Z11.59 Encounter for screening for other viral diseases; M85.89 Other specified disorders of bone density and structure, multiple sites; E78.5 Hyperlipidemia, unspecified
CPT/HCPCS: 36415; 77063; 77067; 80053; 80061; 82306; 86803

== ENCOUNTER → 2021-03-10 09:56 | Outpatient (CLI) | payer MEDICARE, OTHER, SELFPAY ==
--- NOTE | 2021-03-10 | DI.RAD.S_ITS ---
PROCEDURE: XR HIP W PEL IF DONE BILAT 2V INDICATIONS: Osteopenia of multiple sites/Paget's disease of shruti TECHNIQUE: Single view of the pelvis and additional view of each hip was obtained COMPARISON: [facility] Jarrett, GILLES, HIPS BILATERAL, 10/14/2013, 14:34. FINDINGS: Bones: Coarsening of the trabecular pattern noted in the left hemipelvis, similar prior exam. Both proximal femurs are unremarkable. There is moderate left and mild right joint space narrowing with subchondral sclerosis. Both femoral heads have an appropriate contour. Soft tissues: No suspicious soft tissue calcifications or masses. IMPRESSION: 1. Moderate left and mild right hip joint space narrowing 2. Stable Paget's disease noted in the left hemipelvis Approved by: Davie Davis M.D. on 03/10/2021 at 12:25
== END ==
PROVIDERS: PCP Internal Medicine; Referring Provider Internal Medicine; Visit Provider Internal Medicine
DX: M85.89 Other specified disorders of bone density and structure, multiple sites (principal); Z87.39 Personal history of other diseases of the musculoskeletal system and connective tissue; Z78.0 Asymptomatic menopausal state; Z82.62 Family history of osteoporosis
CPT/HCPCS: 73521; 77080

== ENCOUNTER → 2021-03-23 11:53 | Outpatient (CLI) | payer MEDICARE, OTHER, SELFPAY ==
--- NOTE | 2021-03-23 | DI.CT.S_ITS ---
PROCEDURE: CT ABDOMEN PELVIS W CON INDICATIONS: ABDOMINAL PAIN TECHNIQUE: After the administration of intravenous contrast, axial sections acquired from the lung bases to the pubic symphysis. Coronal and sagittal reformats were performed. For radiation dose reduction, the following was used: automated exposure control, adjustment of mA and/or kV according to patient size. COMPARISON: None. FINDINGS: Image quality: Excellent. Lung bases: Unremarkable. Heart: No significant findings. ABDOMEN: Liver: Unremarkable. Gallbladder: Normal. Biliary ducts: Non-dilated. Pancreas: Unremarkable. Spleen: Normal size and appearance of the spleen. Adrenal Glands: No nodule or mass. Kidneys and Ureters: No hydronephrosis or hydroureter. Stomach and Bowel: Large volume of formed stool in the colon. Sigmoid diverticulosis. No findings of diverticulitis. Peritoneum: No abnormal intraperitoneal fluid. No free air. Ventral Wall: No hernias. Abdominal Nodes: No retroperitoneal or mesenteric adenopathy by size criteria. Vessels: Aorta and inferior vena cava are normal in size. PELVIS: Pelvic Organs: Unremarkable. Bladder: Unremarkable. Pelvic Nodes: No enlarged lymph nodes. Miscellaneous: No hernias are seen. Bones: Unremarkable. IMPRESSION: No acute finding. Large volume of stool in the colon may indicate constipation. Dictated by: Víctor Luke M.D. on 03/23/2021 at 15:08 Approved by: Víctor Luke M.D. on 03/23/2021 at 15:12
[2021-03-23 12:58] LABS: Alanine Aminotransferase 14 IU/L (<35); Albumin 4.3 g/dL (3.5-5.0); Albumin Globulin Ratio 1.7 (1.0-2.8); Alkaline Phosphatase 147 U/L (38-126); Aspartate Aminotransferase 23 IU/L (14-36); BUN Creatinine Ratio 26.5 (6-22); Bilirubin Total 0.5 mg/dL (0.2-1.3); Blood Urea Nitrogen 22 mg/dL (7-17); Calcium 9.4 mg/dL (8.4-10.2); Carbon Dioxide 29 mmol/L (22-32); Chloride 103 mmol/L (98-107); Estimated Glomerular Filt Rate > 60.0 mL/min (>60); Globulin 2.6 g/dL (1.7-4.1); Glucose 92 mg/dL (80-110); HEMOLYSIS < 15 (0-50); Sodium 137 mmol/L (137-145); Total Protein 6.9 g/dL (6.3-8.2)
== END ==
PROVIDERS: PCP Internal Medicine; Referring Provider Internal Medicine; Visit Provider Internal Medicine
DX: R10.9 Unspecified abdominal pain (principal)
CPT/HCPCS: 36415; 74177; 80053; Q9967

== ENCOUNTER → 2021-04-15 09:17 | Outpatient (CLI) | payer MEDICARE, OTHER, SELFPAY | PROVIDERS: PCP Internal Medicine; Referring Provider Internal Medicine Hematology & Oncology; Visit Provider Internal Medicine Hematology & Oncology | DX: M85.89 Other specified disorders of bone density and structure, multiple sites (principal) ==

== ENCOUNTER → 2021-04-15 09:30 | Outpatient (CLI) | payer MEDICARE, OTHER, SELFPAY ==
--- NOTE | 2021-04-15 | DI.CT.S_ITS ---
PROCEDURE: CT ABDOMEN PELVIS W CON INDICATIONS: Other specified disorders of bone density and stru TECHNIQUE: After the administration of oral and intravenous contrast, axial sections were acquired from the lung bases to the pubic symphysis. Coronal and sagittal reformats were performed. For radiation dose reduction, the following was used: automated exposure control, adjustment of mA and/or kV according to patient size. COMPARISON:[facility], CT, CT ABDOMEN PELVIS W CON, 02/20/2018, 9:52. [facility], CT, ABDOMEN/PELVIS WITH CONTRAST, 07/26/2016, 9:27. [facility], CT, CT ABDOMEN PELVIS W CON, 03/23/2021, 13:39. FINDINGS: Image quality: Excellent. Lung bases: Unremarkable. Heart: No significant findings. ABDOMEN: Liver: Unremarkable. Gallbladder: Unremarkable. Biliary ducts: Unremarkable. Pancreas: Unremarkable. Spleen: Unremarkable. Adrenal Glands: Unremarkable. Kidneys and Ureters: Unremarkable. Stomach and Bowel: Stomach, small bowel loops, and colon are unremarkable. There are scattered sigmoid diverticula. No evidence for diverticulitis. The appendix is thin walled and gas filled. Peritoneum: No abnormal intraperitoneal fluid. No free air. Ventral Wall: No hernia. Abdominal Nodes: No retroperitoneal or mesenteric adenopathy by size criteria. Vessels: Aorta and inferior vena cava are normal in size. There are scattered atheromatous calcifications throughout the aorta and iliac arteries bilaterally. There is an incidentally noted heavily calcified 1.2 cm splenic artery aneurysm. This measured 1.2 cm on the comparison CT dated July 26, 2016. PELVIS: Pelvic Organs: The uterus and ovaries are grossly unremarkable. Bladder: There is moderate thickening of the upper anterior bladder wall. No discrete perivesicular fat stranding. Pelvic Nodes: No enlarged lymph nodes. Miscellaneous: No inguinal hernias are seen. Bones: The left hemipelvis and the sacrum has an expansile, trabecular pattern suggesting Paget's disease of the bone. Overall findings are slightly increased in extent when compared with the prior CT from 2017. No definite pathologic fracture is visualized. IMPRESSION: 1. No acute intra-abdominal findings. Normal appendix. Diverticulosis. No acute diverticulitis. 2. Stable heavily calcified 1.2 cm splenic artery aneurysm. 3. Probable Paget's disease of the bone throughout the left hemipelvis and the sacrum. Overall findings are slightly increased in extent when compared with the 2017 study. No pathologic fracture is visualized. If further characterization is warranted, MRI of the pelvis could be used. Dictated by: Gisela Nj M.D. on 04/15/2021 at 11:17 Approved by: Gisela Nj M.D. on 04/15/2021 at 11:26
--- NOTE | 2021-04-15 | DI.RAD.S_ITS ---
PROCEDURE: XR RIBS RT 2V INDICATIONS: Other specified disorders of bone density and stru TECHNIQUE: 2 views of the right ribs were acquired. COMPARISON: None. FINDINGS: Surgical changes and devices: None. Bones and chest wall: No fractures or dislocations. No suspicious bony lesions. Overlying soft tissues appear unremarkable. Lungs and pleura: The visualized lung appears clear. No pleural effusions or pneumothorax are visible. IMPRESSION: Unremarkable right rib radiographs Approved by: Davie Davis M.D. on 04/15/2021 at 12:12
== END ==
PROVIDERS: PCP Internal Medicine; Referring Provider Internal Medicine; Visit Provider Internal Medicine
DX: M85.89 Other specified disorders of bone density and structure, multiple sites (principal); K57.90 Diverticulosis of intestine, part unspecified, without perforation or abscess without bleeding; I72.8 Aneurysm of other specified arteries
CPT/HCPCS: 71100; 74177; Q9967

== ENCOUNTER → 2021-11-16 11:10 | Outpatient (CLI) | payer MEDICARE, OTHER, SELFPAY ==
--- NOTE | 2021-11-16 11:14 | DI.RAD.S_ITS ---
PROCEDURE: XR ACUTE ABDOMEN SERIES INDICATIONS: Unspecified abdominal pain TECHNIQUE: One view chest and two views of the abdomen were acquired. COMPARISON: , CT, CT ABDOMEN PELVIS W CON, 04/15/2021, 9:48. FINDINGS: Surgical changes and devices: There are surgical clips in pelvis, possibly related to tubal ligations. Chest: Lungs are clear. Heart size is normal. No pleural effusions. No pneumoperitoneum. Abdomen: Bowel gas pattern is normal. No suspicious calcifications. Visualized solid organ contours appear normal. Bones: No suspicious bony lesions. IMPRESSION: Normal bowel gas pattern. If clinical symptoms persist or clinical suspicion for pathology is high, CT is suggested for further evaluation. Dictated by: Gurmeet Hunt M.D. on 11/16/2021 at 15:05 Approved by: Gurmeet Hunt M.D. on 11/16/2021 at 15:07
== END ==
PROVIDERS: PCP Internal Medicine; Referring Provider Internal Medicine Gastroenterology; Visit Provider Internal Medicine Gastroenterology
DX: R63.4 Abnormal weight loss (principal); R10.9 Unspecified abdominal pain; R19.8 Other specified symptoms and signs involving the digestive system and abdomen
CPT/HCPCS: 74022

== ENCOUNTER → 2022-01-12 09:27 | Outpatient (CLI) | payer MEDICARE, OTHER, SELFPAY ==
--- NOTE | 2022-01-12 | DI.MG.S_ITS ---
BILATERAL DIGITAL SCREENING MAMMOGRAM 3D/2D WITH CAD: 01/12/2022 CLINICAL: Routine screening. Family history of breast cancer. Comparison is made to exams dated: 01/11/2021 mammogram, 11/27/2019 mammogram, and 06/26/2019 mammogram - [facility]. Both breasts are heterogeneously dense, which may obscure small masses (category c / 51-75% glandular tissue). Current study was also evaluated with a Computer Aided Detection (CAD) system. There are benign calcifications in both breasts. There also are benign vascular calcifications in both breasts. No significant masses, calcifications, or other findings are seen in either breast. There has been no significant interval change. IMPRESSION: BENIGN There is no mammographic evidence of malignancy. A 1 year screening mammogram is recommended. Based on the Tyrer Cuzick model (a risk assessment model) the patient's lifetime risk is 8.1% and her 10 year risk is 0.0%. According to the ACR, ACS, and NCCN guidelines, an annual breast MRI exam along with mammogram is recommended if the patient's lifetime risk is 20% or greater. This exam was interpreted at Station ID: [id number]. NOTE: For mammograms, a report in lay terms will be sent to the patient. Approximately 15% of breast malignancies will not be visualized mammographically. In the management of a palpable breast mass, a negative mammogram must not discourage biopsy of a clinically suspicious lesion. Electronically Signed By: Pete sanchez/dina:01/13/2022 08:16:40 letter sent: Normal Exam ACR BI-RADS Category 2: Benign Finding(s) 3342F
== END ==
PROVIDERS: PCP Internal Medicine; Referring Provider Internal Medicine; Visit Provider Internal Medicine
DX: Z12.31 Encounter for screening mammogram for malignant neoplasm of breast (principal); Z80.3 Family history of malignant neoplasm of breast
CPT/HCPCS: 77063; 77067

== ENCOUNTER → 2022-01-20 09:41 | Outpatient (CLI) | payer MEDICARE, OTHER, SELFPAY | PROVIDERS: PCP Internal Medicine; Referring Provider Internal Medicine; Visit Provider Internal Medicine | DX: Z78.0 Asymptomatic menopausal state (principal); Z13.820 Encounter for screening for osteoporosis; M85.852 Other specified disorders of bone density and structure, left thigh | CPT/HCPCS: 77080 ==

== ENCOUNTER → 2023-01-19 14:18 | Outpatient (CLI) | payer MEDICARE, OTHER, SELFPAY ==
--- NOTE | 2023-01-19 14:21 | DI.MG.S_ITS ---
BILATERAL DIGITAL SCREENING MAMMOGRAM 3D/2D WITH CAD: 01/19/2023 CLINICAL: Routine screening. Family history of breast cancer. Comparison is made to exams dated: 01/12/2022 mammogram, 01/11/2021 mammogram, and 11/27/2019 mammogram - [facility]. Both breasts are heterogeneously dense, which may obscure small masses (category c / 51-75% glandular tissue). Current study was also evaluated with a Computer Aided Detection (CAD) system. There is an asymmetry in the right breast posterior depth medial region seen on the craniocaudal view only. This is more prominent. No other significant masses, calcifications, or other findings are seen in either breast. IMPRESSION: INCOMPLETE: NEEDS ADDITIONAL IMAGING EVALUATION The asymmetry in the right breast is indeterminate. Additional views with possible ultrasound are recommended. Based on the Tyrer Cuzick model (a risk assessment model) the patient's lifetime risk is 3.8% and her 10 year risk is 0.0%. According to the ACR, ACS, and NCCN guidelines, an annual breast MRI exam along with mammogram is recommended if the patient's lifetime risk is 20% or greater. This exam was interpreted at Station ID: [id number]. NOTE: For mammograms, a report in lay terms will be sent to the patient. Approximately 15% of breast malignancies will not be visualized mammographically. In the management of a palpable breast mass, a negative mammogram must not discourage biopsy of a clinically suspicious lesion. Electronically Signed By: Daniel Martínez M.D. lc/:01/19/2023 15:27:04 letter sent: Additional Imaging Needed ACR BI-RADS Category 0: Incomplete 3340F
== END ==
PROVIDERS: PCP Family Medicine; Referring Provider Family Medicine; Visit Provider Family Medicine
DX: Z12.31 Encounter for screening mammogram for malignant neoplasm of breast (principal); Z80.3 Family history of malignant neoplasm of breast
CPT/HCPCS: 77063; 77067

== ENCOUNTER → 2023-02-02 09:08 | Outpatient (CLI) | payer MEDICARE, OTHER, SELFPAY ==
--- NOTE | 2023-02-02 09:09 | DI.MG.S_ITS ---
UNILATERAL RIGHT DIGITAL DIAGNOSTIC MAMMOGRAM 3D/2D WITH ADDITIONAL VIEWS: 02/02/2023 CLINICAL: Additional evaluation requested from prior study. Comparison is made to exams dated: 01/19/2023 mammogram, 01/12/2022 mammogram, 01/11/2021 mammogram, and 11/27/2019 mammogram - [facility]. The right breast is heterogeneously dense, which may obscure small masses (category c / 51-75% glandular tissue). There is an asymmetry in the right breast posterior depth medial region seen on the craniocaudal view only. This is not seen in additional views. No other significant masses or calcifications are seen in the breast. IMPRESSION: BENIGN There is no mammographic evidence of malignancy. The asymmetry in the right breast is consistent with fibroglandular tissue and is benign. A 1 year screening mammogram is recommended. Exam findings were conveyed to the patient. Based on the Tyrer Cuzick model (a risk assessment model) the patient's lifetime risk is 3.8% and her 10 year risk is 0.0%. According to the ACR, ACS, and NCCN guidelines, an annual breast MRI exam along with mammogram is recommended if the patient's lifetime risk is 20% or greater. This exam was interpreted at Station ID: [id number]. NOTE: For mammograms, a report in lay terms will be sent to the patient. Approximately 15% of breast malignancies will not be visualized mammographically. In the management of a palpable breast mass, a negative mammogram must not discourage biopsy of a clinically suspicious lesion. Electronically Signed By: Pete Lizarraga M.D. [facility]/:02/02/2023 10:11:13 letter sent: Normal Exam ACR BI-RADS Category 2: Benign Finding(s) 3342F
== END ==
PROVIDERS: PCP Family Medicine; Referring Provider Family Medicine; Visit Provider Family Medicine
DX: R92.8 Other abnormal and inconclusive findings on diagnostic imaging of breast (principal)
CPT/HCPCS: 77065; G0279

== ENCOUNTER → 2024-01-25 10:40 | Outpatient (CLI) | payer MEDICARE, OTHER, SELFPAY ==
--- NOTE | 2024-01-25 10:43 | DI.MG.S_ITS ---
BILATERAL DIGITAL SCREENING MAMMOGRAM 3D/2D WITH CAD: 01/25/2024 CLINICAL: Routine screening. Family history of breast cancer. Comparison is made to exams dated: 01/19/2023 mammogram, 01/12/2022 mammogram, and 01/11/2021 mammogram - [facility]. The breasts are heterogeneously dense, which may obscure small masses (category c / 51-75% glandular tissue). Current study was also evaluated with a Computer Aided Detection (CAD) system. There are benign calcifications in both breasts. No significant masses, calcifications, or other findings are seen in either breast. There has been no significant interval change. IMPRESSION: BENIGN There is no mammographic evidence of malignancy. A 1 year screening mammogram is recommended. Based on the Tyrer Cuzick model (a risk assessment model) the patient's lifetime risk is 2.9% and her 10 year risk is 0.0%. According to the ACR, ACS, and NCCN guidelines, an annual breast MRI exam along with mammogram is recommended if the patient's lifetime risk is 20% or greater. This exam was interpreted at Station ID: [id number]. NOTE: For mammograms, a report in lay terms will be sent to the patient. Approximately 15% of breast malignancies will not be visualized mammographically. In the management of a palpable breast mass, a negative mammogram must not discourage biopsy of a clinically suspicious lesion. Electronically Signed By: Harvey barr/dina:01/26/2024 15:45:22 letter sent: Normal Exam ACR BI-RADS Category 2: Benign
== END ==
LOC: MAMMO 10:42
PROVIDERS: PCP Family Medicine; Referring Provider Family Medicine; Visit Provider Family Medicine
DX: Z12.31 Encounter for screening mammogram for malignant neoplasm of breast (principal); Z80.3 Family history of malignant neoplasm of breast; R92.333 Mammographic heterogeneous density, bilateral breasts
CPT/HCPCS: 77063; 77067

== ENCOUNTER → 2024-04-11 09:00 | Outpatient (CLI) | payer MEDICARE, OTHER, SELFPAY ==
[2024-04-11 10:19] LABS: Alanine Aminotransferase 18 IU/L (<35); Albumin 4.4 g/dL (3.5-5.0); Alkaline Phosphatase 52 U/L (38-126); Aspartate Aminotransferase 26 IU/L (14-36); BUN Creatinine Ratio 24.5 (6-22); Bilirubin Total 0.5 mg/dL (0.2-1.3); Blood Urea Nitrogen 24 mg/dL (7-17); Calcium 9.3 mg/dL (8.4-10.2); Carbon Dioxide 31 mmol/L (22-32); Chloride 103 mmol/L (98-107); Estimated Glomerular Filt Rate 58 mL/min (>60); Globulin 2.2 g/dL (1.7-4.1); Glucose 83 mg/dL (80-110); HEMOLYSIS < 15 (0-50); Potassium 5.1 mmol/L (3.4-5.1); Sodium 140 mmol/L (137-145); Total Protein 6.6 g/dL (6.3-8.2)
[2024-04-11 10:32] LABS: Vitamin D 25 Hydroxy (D3) 58.5 ng/mL (30.0-100.0)
--- NOTE | 2024-04-11 14:35 | DI.RAD.S_ITS ---
PROCEDURE: XR DEXA AXIAL SKELETON INDICATIONS: SCREENING COMPARISON: [facility], , XR DEXA AXIAL SKELETON, 01/20/2022, 10:07. FINDINGS: Lumbar Spine: Bone mineral density 0.993 (previously 0.899) g/cm2, T score -0.5 (previously-1.3). Left Femoral Neck: Bone mineral density 0.671 (previously 0.671) g/cm2, T score -1.6 (previously-1.6) Left Hip: Bone mineral density 0.826 (previously 0.814) g/cm2, T score -1.0 (previously-1.0). Fracture Risk Calculation (when applicable): 10-year fracture risk of a major osteoporotic fracture of 12 percent and of a hip fracture 3.5 percent. (T score greater or equal to -1.0 to: NORMAL) (T score from -1.1 to -2.4: OSTEOPENIA) (T score less than or equal to -2.5: OSTEOPOROSIS) IMPRESSION: Osteopenia---recommend repeat DEXA in 2-3 years for reassessment. Follow-up guidelines as follows: Osteoporosis: Consider a repeat DEXA and Vertebral Fracture Assessment (VFA) exam in 2 years or sooner if medically necessary, to reassess this patient's status. Osteopenia: Consider a repeat DEXA in 2-3 years to reassess this patient's status, or if there is a new clinical indication. Normal: Consider a repeat DEXA in 5 years or sooner, or if there is a new clinical indication. All treatment decisions require clinical judgment and consideration of individual patient factors, including patient preferences, comorbidities, previous drug use, risk factors not captured in the FRAX model (e.g., frailty, falls, vitamin D deficiency, increased bone turnover, interval significant decline in bone density ) and possible under- or over-estimation of fracture risk by FRAX. In addition, the NOF Guide recommends that FDA-approved medical therapies be considered in postmenopausal women and men age >= 50 years with a: * Hip or vertebral (clinical or morphometric) fracture * T-score of <=-2.5 at the spine or hip * Ten-year fracture probability by FRAX of >= 3% for hip fracture or >=20% for major osteoporotic fracture. Dictated by: Simone Hatfield M.D. on 04/13/2024 at 6:28 Approved by: Simone Hatfield M.D. on 04/13/2024 at 6:29
== END ==
LOC: RAD 09:02
PROVIDERS: PCP Family Medicine; Referring Provider Internal Medicine Endocrinology, Diabetes & Metabolism; Visit Provider Internal Medicine Endocrinology, Diabetes & Metabolism
DX: M81.0 Age-related osteoporosis without current pathological fracture (principal)
CPT/HCPCS: 36415; 77080; 80053; 82306

== ENCOUNTER → 2024-10-22 09:33 | Outpatient (CLI) | payer MEDICARE, OTHER, SELFPAY ==
--- NOTE | 2024-10-22 | DI.RAD.S_ITS ---
PROCEDURE: XR KNEE RT 3V INDICATIONS: Acute right knee pain TECHNIQUE: 3 views of the knee were acquired. COMPARISON: None. FINDINGS: Bones: There are no osseous abnormalities. 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 Small effusion. Soft tissues: Normal IMPRESSION: Moderate degeneration. Small effusion Dictated by: Rick Arguelles M.D. on 10/22/2024 at 10:56 Approved by: Rick Arguelles M.D. on 10/22/2024 at 10:57
[2024-10-22 11:35] LABS: Add Manual Diff / Slide Review NO; Hematocrit 34.9 % (36-46); Hemoglobin 11.8 g/dL (12.0-16.0); Lymphocytes Absolute Auto 1000 /uL (1100-4500); Mean Corpuscular HGB Conc 33.9 % (30-36); Mean Corpuscular Hemoglobin 29.5 PG (26-34); Mean Corpuscular Volume 86.9 fL (80-100); Platelet Count 183 X10^3/uL (150-400)
[2024-10-22 12:03] LABS: Alanine Aminotransferase 15 IU/L (<35); Albumin 4.2 g/dL (3.5-5.0); Albumin Globulin Ratio 1.8 (1.0-2.8); Alkaline Phosphatase 58 U/L (38-126); Blood Urea Nitrogen 24 mg/dL (7-17); Calcium 9.0 mg/dL (8.4-10.2); Carbon Dioxide 29 mmol/L (22-32); Chloride 102 mmol/L (98-107); Estimated Glomerular Filt Rate > 60 mL/min (>60); Globulin 2.3 g/dL (1.7-4.1); Glucose 92 mg/dL (70-99); HEMOLYSIS < 15 (0-50); Potassium 5.0 mmol/L (3.4-5.1); Sodium 139 mmol/L (137-145); Total Protein 6.5 g/dL (6.3-8.2)
== END ==
PROVIDERS: PCP Family Medicine; Referring Provider Family Medicine; Visit Provider Internal Medicine
DX: M17.11 Unilateral primary osteoarthritis, right knee (principal); M25.461 Effusion, right knee; M25.561 Pain in right knee; I10 Essential (primary) hypertension
CPT/HCPCS: 36415; 73562; 80053; 85025

== ENCOUNTER → 2024-11-25 10:00 | Outpatient (CLI) | payer MEDICARE, OTHER, SELFPAY ==
[2024-11-25 10:39] LABS: Reticulocyte Count, Percent 0.7 % (1.1-2.6)
[2024-11-25 10:40] LABS: Add Manual Diff / Slide Review NO; Hematocrit 35.0 % (36-46); Hemoglobin 11.9 g/dL (12.0-16.0); Lymphocytes Absolute Auto 900 /uL (1100-4500); Mean Corpuscular HGB Conc 33.9 % (30-36); Mean Corpuscular Hemoglobin 29.4 PG (26-34); Mean Corpuscular Volume 86.8 fL (80-100); Platelet Count 185 X10^3/uL (150-400)
[2024-11-25 11:34] LABS: HEMOLYSIS < 15 (0-50); Iron 101 ug/dL (37-170)
[2024-11-25 11:49] LABS: Percent Iron Saturation 40 % (15-50); Total Iron Binding Capacity 250 ug/dL (265-497); Transferrin 223 mg/dL (206-381)
[2024-11-25 12:51] LABS: Folate 6.7 ng/mL (2.76-20.0); Vitamin B12 830 pg/mL (239-931)
[2024-11-26 09:31] LABS: Anisocytosis 1+
[2024-11-26 19:36] LABS: Neutrophils Absolute Manual 0 /uL (3000-5900); Total Cells Counted 100
== END ==
PROVIDERS: PCP Internal Medicine; Referring Provider Internal Medicine; Visit Provider Internal Medicine
DX: D64.9 Anemia, unspecified (principal)
CPT/HCPCS: 36415; 82607; 82746; 83540; 83550; 85007; 85025; 85045